=== PATIENT | female | born 1930 | race Caucasian/White ===

== ENCOUNTER 2019-03-18 22:43 | Inpatient (IN) | payer MEDICARE, OTHER ==
[~2019-03-18] VITALS: Ht 160 cm; Wt 59.0 kg
--- NOTE | 2019-03-18 22:50 | NUR ---
ED Nurse Note: pt brought in by [facility] from home c/c cough and pain in the chest area from cough, per EMS report pt went to clinic today and took promethazine for cough report no changes. no sx resp distress noted, vss, airway intact, will cont monitor.
[2019-03-18 23:00] VITALS: BP 150/69
--- NOTE | 2019-03-18 23:07 | Diagnostic Imaging Report ---
EXAM: XR Chest, 1 View CLINICAL HISTORY: SOB TECHNIQUE: Frontal view of the chest. COMPARISON: No relevant prior studies available. IMPRESSION: Cardiomegaly. Left lower lobe consolidation, possibly aspiration or subsegmental atelectasis. No pleural effusion. No pulmonary edema. Pacer wires are in place.
[2019-03-18 23:54] LABS: ANION GAP 10 mmol/L (5-15); BLOOD UREA NITROGEN 27 mg/dL (7-18); CALCIUM 9.2 MG/DL (8.5-10.1); CARBON DIOXIDE 26 MMOL/L (21-32); CHLORIDE 103 MMOL/L (98-107); CREATININE 1.2 MG/DL (0.55-1.30); SODIUM 139 MMOL/L (136-145)
[2019-03-18] MEDS ORDERED: IMBRUVICA420 MG PO (23:55)
[2019-03-18] MEDS ORDERED: LEVOTHYROXINE175 MCG ORAL (23:55)
[2019-03-18] MEDS ORDERED: LIOTHYRONINE SO5 MCG PO (23:55)
[2019-03-18] MEDS ORDERED: FOLIC ACID0.8 MG ORAL (23:55)
[2019-03-19] VITALS (8 sets, daily range): BP systolic 96–145; BP diastolic 44–76
[2019-03-19] MEDS ORDERED: Piperacillin/Tazobactam 3.375 GM in NS 110 ML IVPB ONE ×2
--- NOTE | 2019-03-19 | NUR ---
ED Nurse Note: noted pt's elevated troponin level, ERMD aware, will follow up with order.
[2019-03-19 00:01] LABS: HEMATOCRIT 38.9 % (37.0-47.0); HEMOGLOBIN 12.9 G/DL (12.0-16.0); MEAN CORPUSCULAR VOLUME 102 FL (80-99); PLATELET COUNT 123 K/UL (150-450); RED BLOOD COUNT 3.83 M/UL (4.20-5.40); RED CELL DISTRIBUTION WIDTH 11.8 % (11.6-14.8); WHITE BLOOD COUNT 14.9 K/UL (4.8-10.8)
[2019-03-19] MEDS ORDERED: Aspirin Baby 81mg ONE (00:06)
[2019-03-19 00:09] LABS: ALANINE AMINOTRANSFERASE 18 U/L (12-78); ALBUMIN/GLOBULIN RATIO 0.7 (1.0-2.7); ALKALINE PHOSPHATASE 41 U/L (46-116); ASPARTATE AMINO TRANSFERASE 12 U/L (15-37); BILIRUBIN,TOTAL 0.3 MG/DL (0.2-1.0); CKMB 7.3 NG/ML (0.0-3.6); CREATINE KINASE 57 U/L (26-308)
[2019-03-19] MEDS ORDERED: Aspirin Baby 81mg ORAL ONE (00:15)
--- NOTE | 2019-03-19 00:45 | NUR ---
ED Nurse Note: NOTED PT COUGHING, NONPRODUCTIVE, WEAK COUGH, ERMD NOTIFIED, RT CONTACTED.
--- NOTE | 2019-03-19 00:46 | Emergency Room Report ---
History of Present Illness General Chief Complaint: Upper Respiratory Illness Source: Patient, Family Member Present Illness HPI 88-year-old female with history of non-Hodgkin lymphoma. She also has a history of maker. She presents with chief complaint of a cough. She had a cough for the last 3 days. Went to urgent care and prescribed promethazine. She took it and if she has more coughing. This caused her to be short of breath and has tightness. No fever or chills. Coughing is nonproductive in nature. Worse with inspiration. Worse with exertion. Denies any other complaint. Allergies: Uncoded Allergies: SULFA (Allergy, Unknown, 03/18/19) Patient History Past Medical History: see triage record, old chart reviewed Past Surgical History: pacemaker, other Pertinent Family History: none Social History: Denies: smoking Now: No Immunizations: other Reviewed Nursing Documentation: PMH: Agreed; PSxH: Agreed Nursing Documentation-PMH Past Medical History: No History, Except For Hx Pacemaker: Yes Hx Cancer: Yes - Waldenstrom macroglobulinemia Review of Systems Eye: Denies: eye pain, blurred vision ENT: Denies: ear pain, nose congestion, throat swelling Respiratory: Reports: cough; Denies: shortness of breath Cardiovascular: Reports: chest pain; Denies: palpitations Gastrointestinal: Denies: abdominal pain, diarrhea, nausea, vomiting Musculoskeletal: Denies: back pain, joint pain Skin: Denies: rash Neurological: Denies: headache, numbness Endocrine: Denies: increased thirst, increased urine Hematologic/Lymphatic: Denies: easy bruising All Other Systems: negative except mentioned in HPI Physical Exam Vital Signs Date Time Temp Pulse Resp B/P (MAP) Pulse Ox O2 Delivery O2 Flow Rate FiO2 03/18/19 22:44 98.6 62 16 147/60 (89) 99 Room Air Vitals normal Sp02 EP Interpretation: reviewed, normal General Appearance: well appearing, no apparent distress, alert Head: normocephalic, atraumatic Eyes: bilateral eye PERRL, bilateral eye EOMI ENT: hearing grossly normal, normal pharynx Neck: full range of motion, supple, no meningismus Respiratory: chest non-tender, normal breath sounds, rhonchi Cardiovascular #1: regular rate, rhythm, no murmur Gastrointestinal: normal bowel sounds, non tender, no mass, no organomegaly, no bruit, non-distended Musculoskeletal: back normal, gait/station normal, normal range of motion Psychiatric: mood/affect normal Skin: warm/dry Procedures Critical Care Time Critical Care Time Critical care is mandated in this patient who presented with shortness of breath and has pneumonia and [place]. Patient require my urgent intervention to attenuate the risks of metabolic collapse which may lead to cardiovascular collapse and . Critical care time is 35 minutes excluding any reportable procedure. Critical care time included evaluation, multiple reevaluation, looking at old charts, interpreting laboratory and diagnostic data, discussing case with patient and family and consultants, and charting. Medical Decision Making Diagnostic Impression: Primary Impression: Community acquired pneumonia Qualified Codes: J18.1 - Lobar pneumonia, unspecified organism Additional Impression: NSTEMI (non-ST elevated myocardial infarction) ER Course Patient presents with a cough and chest x-ray showed a left lower lobe infiltrate. Antibiotics given. Based on her age and risk factor, I cover for healthcare associated also. She has no chest pain complaint and EKG showed a paced rhythm. No evidence of any STEMI. Patient given aspirin here. I the case with Dr. Marsh who will admit EKG Diagnostic Results Rate: normal, other - paced Rhythm: NSR ASA given to the pt in ED: Yes Rhythm Strip Diag. Results EP Interpretation: yes Rate: 88 Rhythm: NSR, no PVC's, no ectopy Chest X-Ray Diagnostic Results Chest X-Ray Diagnostic Results : Chest X-Ray Ordered: Yes # of Views/Limited/Complete: 1 View Indication: Shortness of Breath EP Interpretation: Yes Interpretation: no effusion, no pneumothorax, other - LLL infiltrate Impression: Other - LLL infiltrate Electronically Signed by: Luke Campbell MD Last Vital Signs Date Time Temp Pulse Resp B/P (MAP) Pulse Ox O2 Delivery O2 Flow Rate FiO2 03/18/19 23:00 62 14 Room Air 03/18/19 23:00 98.6 150/69 99 Status: improved Disposition: ADMITTED INPATIENT Condition: Serious Luke Campbell MD Mar 19, 2019 00:46
[2019-03-19] MEDS ORDERED: Albuterol ud Inhalation HHN ONE (01:00)
--- NOTE | 2019-03-19 01:00 | NUR ---
ED Nurse Note: pt sleeping at this time, vss, resp even and unlabored, pt continue to have occasional nonproductive cough, nsr on monitor and storage bin tender, all safety measures in place, will cont monitor. pt's at the bedside.
--- NOTE | 2019-03-19 01:39 | NUR ---
THONG GUNDERSON ([facility]) [phone]
--- NOTE | 2019-03-19 02:09 | NUR ---
ED Nurse Note: report given to INEZ Angeles from tele.
--- NOTE | 2019-03-19 02:27 | NUR ---
ED Nurse Note: pt transferred to tele, all belongings sent w/ pt w/ completed belonging list, pt vss, resp even and unlabored on RA, pt on continuous ship engineer, NSR, iv intact and patent. care endorsed to INEZ Angeles from tele.
--- NOTE | 2019-03-19 03:33 | NUR ---
NURSE NOTES: NEW ADMISSION: pt arrived via hospital bed at 0230. Admitting dr. Lambert and DX: CP. Pt is AOX4, pt is on room air with 100% O2 sat, no sign or c/o distress. pt c/o pain in chest 05/14. DR Lambert was notified, awaiting call back. pt was placed on clinical research monitor, pt oriented to room, belongings were reviewed. Called dr Lambert and left message at 0300, awaiting call back from DR Mccormick with admitting orders.
--- NOTE | 2019-03-19 03:39 | NUR ---
NURSE NOTES: recvd call from lab with critical value of troponin 10.671 previous troponin 1.617. Awaiting call back from Dr Marsh
--- NOTE | 2019-03-19 03:41 | NUR ---
NURSE NOTES: 2nd attempt to contact dr Marsh, left message with answering service, on stand by
[2019-03-19] MEDS ORDERED: Enoxaparin 60mg Inj SUBQ ONE (03:45)
[2019-03-19] MEDS ORDERED: Enalaprilat 2.5mg/2ml Inj IV PRN ×2 (05:00→09:00)
[2019-03-19] MEDS ORDERED: dilTIAZem HCl 25mg/5ml Inj IV PRN ×2 (05:00→09:00)
[2019-03-19] MEDS ORDERED: Miralax 17gm pkt ORAL PRN ×2 (05:00→09:00)
[2019-03-19] MEDS ORDERED: Nitroglycerin Subl 0.4mg tab SL PRN ×2 (05:00→08:15)
[2019-03-19] MEDS ORDERED: Albuterol/Ipratropium 3ml neb HHN PRN ×2 (05:00→09:00)
[2019-03-19] MEDS ORDERED: Morphine Sulfate 2mg/ml Inj(IV/IM USE ONLY) IVP PRN ×4 (05:00→09:00)
--- NOTE | 2019-03-19 05:00 | NUR ---
NURSE NOTES: Called Dr Casiano and recmadi orders.
[2019-03-19] MEDS ORDERED: Promethazine/Codeine 5ml UD ORAL PRN ×2 (05:15→09:15)
--- NOTE | 2019-03-19 06:19 | NUR ---
NURSE NOTES: recvd order by Dr Campbell to do 12 lead EKG, pt is having ACUTE [place]/ STEMI. slot floor supervisor aware, transport to [facility] in place and in progress for higher level of care.
--- NOTE | 2019-03-19 06:26 | NUR ---
NURSE NOTES: Per Log Hooker Eugenio, ambulance transport in progress.Accepting Dr Nava at [facility]. Will call to give report once I receive contact number
[2019-03-19] MEDS ORDERED: Liothyronine 5mcg tab ORAL SCH (06:30)
[2019-03-19] MEDS ORDERED: Heparin 25,000u/D5W 500ml 500 ML IV SCH (07:30)
[2019-03-19 07:38] LABS: BASOPHILS % (AUTO) 1.2 % (0.0-2.0); EOSINOPHILS % (AUTO) 0.1 % (0.0-3.0); HEMATOCRIT 37.3 % (37.0-47.0); HEMOGLOBIN 12.1 G/DL (12.0-16.0); LYMPHOCYTES % (AUTO) 30.4 % (20.0-45.0); MEAN CORPUSCULAR VOLUME 100 FL (80-99); MONOCYTES % (AUTO) 11.6 % (1.0-10.0); NEUTROPHILS % (AUTO) 56.9 % (45.0-75.0); PLATELET COUNT 118 K/UL (150-450); RED BLOOD COUNT 3.72 M/UL (4.20-5.40); RED CELL DISTRIBUTION WIDTH 11.8 % (11.6-14.8); WHITE BLOOD COUNT 11.4 K/UL (4.8-10.8)
--- NOTE | 2019-03-19 07:42 | NUR ---
At approximately 0345 INEZ Adams expressed concern of patient having chest pain and Dr Marsh has not responded yet. RN called Dr Marsh 2x, with 15 mins interval, no call ball. I called and left a voicemail to Dr Marsh's Cell number. We then called Dr Casiano and was able to get orders from him after first attempt of calling him. At approximately 0515, Dr Jeanmarie Marsh called and ordered for patient to be transferred to [facility] and asked me to call Dr Unger, who turns out to be on vacation for the week after callign all available phone numbers on hospital directory. I attempted to call Dr Marsh again, no merchandise pickup/receiving associate, so i left a voicemail on cellphone regarding Dr Unger on leave. At approximately 0600, Dr Marsh called and notified me that Dr Luke Campbell is attempting to get a receiving MD from [facility]. ED charge nurse keny, notified me that they are orchestrating transfer, including transport, and communication with [facility] for bed number and phone number to give report to. Egk was sent to Dr Campbell from . I was notified that Dr Nava will be patient's receving MD in [facility]. Notified Angie WILEY. At 0630, Keny endorsed that Vicky, AM Charge nurse will follow-up with these info. At 0730, Vicky verbalized that she will get these information and will give transfer packet to ICU.
--- NOTE | 2019-03-19 07:59 | NUR ---
NURSE NOTES: capacity planning engineer Brown unable to contact , number is wrong
--- NOTE | 2019-03-19 08:01 | NUR ---
NURSE NOTES: Gave report to INEZ Chew in ICU, belongings transfered with pt.
--- NOTE | 2019-03-19 08:10 | NUR ---
NURSE NOTES: Received the patient from INEZ Adams. Transferred from Tele. Patient is awake, alert and oriented, x4. Patient on room air, O2 sat 97%, called RT for oxygen. Denies any chest pain or SOB. No acute distress noted. SR noted on the monitoring and evaluation advisor. VSS, afebrile. All belongings checked. sacral redness noted. Left AC 22G intact, running heparin drip at 12unit/kg/hr. No s/sx of bleeding noted. awaiting for transfer to [facility] for labeler. Pt will be admitted under Dr. Salcedo and transport is arranged at 12pm, per INEZ Adams. Will keep pt NPO. Bed in lowest position.
--- NOTE | 2019-03-19 08:30 | NUR ---
NURSE NOTES: pt was transferred to ICU, gave report to INEZ Dawn, Advised her that per transfer center DR Salcedo is acceptiing pt.
--- NOTE | 2019-03-19 08:50 | NUR ---
NURSE NOTES: patient's , Lisandro Kent, called back. updated on pt's status and plan for transfer to [facility].
[2019-03-19] MEDS ORDERED: Aspirin Baby 81mg ORAL SCH ×2 (09:00)
[2019-03-19] MEDS ORDERED: Heparin 5000 units/ml inj SUBQ SCH ×2 (09:00)
--- NOTE | 2019-03-19 09:00 | NUR ---
NURSE NOTES: Patient asleep, easily arousable. Patient on 2L O2 via NC, O2 sat 100%. BP 96/65. SR noted on the monitor. No acute distress noted.
--- NOTE | 2019-03-19 09:25 | NUR ---
NURSE NOTES: Patient seen by Dr. Marsh. okay not to give asa this morning.
--- NOTE | 2019-03-19 09:41 | NUR ---
NURSE NOTES: 2D Echo completed. Dr. Muñoz at bedside.
--- NOTE | 2019-03-19 11:05 | Consultation ---
Consult Note Consult Note Cardiology for Dr. Lea Full note dictated # [id number] Briefly, Mrs. Kent is an 88 yo woman w/ hx of sick sinus syndrome, s/p pacemaker ( [employer]), Waldenstrom's macroglobulinemia, on imbrovica, followed by Dr. Umana, who presented last pm w/ CP, dyspnea, n/v . EKG w/ PRWP , small q waves laterally and borderline ST elev ( 1/2 mm i, avL). Trop 1.6. Called to see pt this am, when trop noted to inc to 10. Pt w/ decreased cP ( from 10/10 to 3/10 severity) and ekg without significant change from adm. ECHO ( prelim) w EF 20s and ant/apical/lat wma. Pt has been started on asa, plavix, b declan and statin. BP borderline, so will hold JOSEPH inhibitor for now. D/w Dr. Giron , who accepted pt in transfer for further rx of acute NSTEMI w / ongoing CP, possible cath/PCI. D/w Dr. Umana 's covering Gabrielle Berumen MD Mar 19, 2019 11:05
--- NOTE | 2019-03-19 11:20 | Consultation ---
History of Present Illness General Date patient seen: Mar 19, 2019 Time patient seen: 09:05 Chief Complaint: cough Referring physician: Dr Marsh Reason for Consultation: PNA Present Illness HPI 71 years old female with past medical history of sick sinus syndrome, pacemaker , Waldenstrom's macroglobulinemia, presented with complaint of cough for last 3 to 4 days. Cough reported as nonproductive, worse with inspiration and exertion. Patient went to urgent care and was prescribed promethazine. Patient reported no relief from it Patient also reported chest tightness and was short of breath. No fever, no chills. Patient lives at home with her . Upon evaluation patient was afebrile. Pulse oximetry was stable on room air. EKG revealed sinus rhythm, no acute ischemic changes. Chest x-ray demonstrated left lower lobe consolidation , possibly aspiration versus subsegmental atelectasis no pleural effusion no pulmonary edema. Pacer wires were in place. Laboratory work-up revealed leukocytosis WBC 14.9 , hemoglobin 12.9 ,hematocrit 28.9 .platelet count 123. BUN 27, creatinine 1.2 . Troponin initial 1.617. Repeated troponin peaked 10.6, patient started on heparin drip. [facility] transfer center was contacted for transfer . meantime patient was admitted for ICU . Allergies: Coded Allergies: PENICILLINS (Unverified Allergy, Unknown, 03/19/19) per patient Uncoded Allergies: SULFA (Allergy, Unknown, 03/18/19) Medication History Scheduled Folic Acid (Folic Acid), 1 MG ORAL DAILY, (Reported) Ibrutinib (Imbruvica), 450 MG PO DAILY, (Reported) Levothyroxine Sodium (Levothyroxine Sodium), 75 MCG ORAL DAILY, (Reported) Liothyronine Sodium (Liothyronine Sodium), 5 MCG PO DAILY, (Reported) Patient History Healthcare decision maker Resuscitation status Full Code Advanced Directive on File Review of Systems Constitutional: Reports: weakness Eye: Reports: no symptoms ENT: Reports: no symptoms Respiratory: Reports: see HPI Cardiovascular: Reports: see HPI, other - pacemaker Gastrointestinal: Reports: no symptoms Genitourinary: Reports: no symptoms Musculoskeletal: Reports: muscle stiffness Skin: Reports: other - dry skin, redness sacral area Psychiatric: Reports: no symptoms Neurological: Reports: no symptoms Endocrine: Reports: no symptoms Hematologic/Lymphatic: Reports: no symptoms Physical Exam General Appearance: no apparent distress - awake, alert, weak, but responsive elderly female Lines, tubes and drains: peripheral HEENT: normocephalic, atraumatic, anicteric, mucous membranes moist, PERRL Neck: non-tender, supple Respiratory/Chest: chest wall non-tender, lungs clear, no respiratory distress Cardiovascular/Chest: normal rate, regular rhythm Abdomen: normal bowel sounds, non tender, soft Extremities: normal range of motion Skin Exam: warm/dry, other - redness sacral area Neurologic: alert, responsive Musculoskeletal: atrophy - BLE Last 24 Hour Vital Signs Date Time Temp Pulse Resp B/P (MAP) Pulse Ox O2 Delivery O2 Flow Rate FiO2 03/19/19 10:00 67 20 121/44 (69) 100 03/19/19 09:00 67 20 96/65 (75) 99 03/19/19 08:00 97.7 74 20 116/58 (77) 98 03/19/19 08:00 72 03/19/19 07:09 97.5 03/19/19 04:00 76 03/19/19 03:00 97.5 83 21 119/64 (82) 100 03/19/19 02:49 Room Air 03/19/19 02:30 79 03/19/19 02:26 98.9 79 15 120/50 98 Room Air 03/19/19 02:04 98.4 81 18 126/53 98 Room Air 03/19/19 01:06 79 22 100 Room Air 21 03/19/19 00:56 72 30 96 Room Air 21 03/19/19 00:56 21 03/19/19 00:55 72 30 96 Room Air 21 03/19/19 00:00 98.2 67 16 145/76 98 Room Air 03/18/19 23:00 62 14 Room Air 03/18/19 23:00 98.6 60 16 150/69 99 Room Air 03/18/19 22:44 98.6 62 16 147/60 (89) 99 Room Air Laboratory Tests Test 03/18/19 23:15 03/19/19 02:20 03/19/19 05:20 03/19/19 07:05 White Blood Count 14.9 K/UL (4.8-10.8) H 11.4 K/UL (4.8-10.8) H Red Blood Count 3.83 M/UL (4.20-5.40) L 3.72 M/UL (4.20-5.40) L Hemoglobin 12.9 G/DL (12.0-16.0) 12.1 G/DL (12.0-16.0) Hematocrit 38.9 % (37.0-47.0) 37.3 % (37.0-47.0) Mean Corpuscular Volume 102 FL (80-99) H 100 FL (80-99) H Mean Corpuscular Hemoglobin 33.6 PG (27.0-31.0) H 32.6 PG (27.0-31.0) H Mean Corpuscular Hemoglobin Concent 33.1 G/DL (32.0-36.0) 32.4 G/DL (32.0-36.0) Red Cell Distribution Width 11.8 % (11.6-14.8) 11.8 % (11.6-14.8) Platelet Count 123 K/UL (150-450) L 118 K/UL (150-450) L Mean Platelet Volume 7.8 FL (6.5-10.1) 8.2 FL (6.5-10.1) Neutrophils (%) (Auto) % (45.0-75.0) 56.9 % (45.0-75.0) Lymphocytes (%) (Auto) % (20.0-45.0) 30.4 % (20.0-45.0) Monocytes (%) (Auto) % (1.0-10.0) 11.6 % (1.0-10.0) H Eosinophils (%) (Auto) % (0.0-3.0) 0.1 % (0.0-3.0) Basophils (%) (Auto) % (0.0-2.0) 1.2 % (0.0-2.0) Differential Total Cells Counted 100 Neutrophils % (Manual) 31 % (45-75) L Lymphocytes % (Manual) 59 % (20-45) H Monocytes % (Manual) 9 % (1-10) Eosinophils % (Manual) 1 % (0-3) Basophils % (Manual) 0 % (0-2) Band Neutrophils 0 % (0-8) Platelet Estimate Decreased L Platelet Morphology Normal Anisocytosis 1+ Macrocytosis 1+ Sodium Level 139 MMOL/L (136-145) Potassium Level 4.0 MMOL/L (3.5-5.1) Chloride Level 103 MMOL/L (98-107) Carbon Dioxide Level 26 MMOL/L (21-32) Anion Gap 10 mmol/L (5-15) Blood Urea Nitrogen 27 mg/dL (7-18) H Creatinine 1.2 MG/DL (0.55-1.30) Estimat Glomerular Filtration Rate mL/min (>60) Glucose Level 122 MG/DL (74-106) H Lactic Acid Level 1.80 mmol/L (0.4-2.0) Calcium Level 9.2 MG/DL (8.5-10.1) Total Bilirubin 0.3 MG/DL (0.2-1.0) Aspartate Amino Transf (AST/SGOT) 12 U/L (15-37) L Alanine Aminotransferase (ALT/SGPT) 18 U/L (12-78) Alkaline Phosphatase 41 U/L (46-116) L Total Creatine Kinase 57 U/L (26-308) Creatine Kinase MB 7.3 NG/ML (0.0-3.6) H Creatine Kinase MB Relative Index 12.8 Troponin I 1.617 ng/mL (0.000-0.056) 10.671 ng/mL (0.000-0.056) 10.843 ng/mL (0.000-0.056) Pro-B-Type Natriuretic Peptide 153 pg/mL (0-125) H Total Protein 7.6 G/DL (6.4-8.2) Albumin 3.0 G/DL (3.4-5.0) L Globulin 4.6 g/dL Albumin/Globulin Ratio 0.7 (1.0-2.7) L Activated Partial Thromboplast Time 30 SEC (23-33) Height (Feet): 5 Height (Inches): 3.00 Weight (Pounds): 130 Medications Current Medications Medications (Trade) Dose Ordered Sig/Thierno Route PRN Reason Start Time Stop Time Status Last Admin Dose Admin Acetaminophen (Tylenol) 650 mg Q4H PRN ORAL FEVER 03/19/19 09:00 04/18/19 04:59 Aspirin (ASA) 162 mg DAILY ORAL 03/19/19 09:00 04/18/19 08:59 Atorvastatin Calcium (Lipitor) 20 mg BEDTIME ORAL 03/19/19 21:00 04/18/19 20:59 Folic Acid (Folate) 1 mg DAILY ORAL 03/19/19 09:00 04/18/19 08:59 Heparin Sodium/ Dextrose 500 ml @ 14.152 mls/ hr ADJUST PER PROTOCOL IV 03/20/19 09:30 04/18/19 09:29 Levothyroxine Sodium (Synthroid) 75 mcg DAILY@0630 ORAL 03/20/19 06:30 04/18/19 06:29 Levothyroxine Sodium (Synthroid) 100 mcg DAILY@0630 ORAL 03/20/19 06:30 04/18/19 06:29 Liothyronine Sodium (Cytomel) 5 mcg DAILY@0630 ORAL 03/20/19 06:30 04/18/19 06:29 Metoprolol Tartrate (Lopressor) 12.5 mg Q12HR ORAL 03/19/19 21:00 04/18/19 20:59 Morphine Sulfate (Morphine Sulfate) 1 mg Q2H PRN IVP for chest pain 03/19/19 09:00 03/26/19 04:59 Morphine Sulfate (Morphine Sulfate) 2 mg Q4H PRN IVP severe Pain (Pain Scale 7-10) 03/19/19 09:00 03/26/19 04:59 Nitroglycerin (Ntg) 0.4 mg Q5M PRN SL Prn Chest Pain 03/19/19 08:15 04/18/19 04:59 Ondansetron HCl (Zofran) 4 mg Q6H PRN IVP Nausea & Vomiting 03/19/19 09:00 04/18/19 08:59 Polyethylene Glycol (Miralax) 17 gm DAILYPRN PRN ORAL Constipation 03/19/19 09:00 04/18/19 08:59 Assessment/Plan Assessment/Plan: ASSESSMENT acute NSTEMI Cardiomyopathy - new? vs old Moderate AR Probably PNA Mild pulmonary HTN SSS, s/p PPM Waldenstrom's macroglobulinemia Hypothyroidism PLAN OF CARE ICU Heparin gtt seen by cardio awaiting for transfer to [facility] for cardiac cath started on ASA, statin, beta blockage O2 prn to keep sat above 92%, pulm toilet prn empiric abx, leuk trending down fup with CXR ECHO with EF 20%, moderate AR and mild pulmonary HTN home medication resumed awaiting for transfer case discussed and evaluated by supervising physician Cristina Clay NP Mar 19, 2019 11:20
--- NOTE | 2019-03-19 11:44 | NUR ---
NURSE NOTES: RN report given to INEZ Sierra at [facility]. Patient is going to CICU [id number] per RN. All questions answered. Awaiting for transportation. Patient reading a book. No acute distress noted. On 2L O2 NC, O2 sat 100%. BP 109/46, HR 60. Pt's at bedside.
[2019-03-19 11:50] LABS: CHOLESTEROL 163 MG/DL (< 200); HDL CHOLESTEROL 43 MG/DL (40-60); TRIGLYCERIDES 74 MG/DL (30-150)
--- NOTE | 2019-03-19 12:20 | NUR ---
NURSE NOTES: Patient discharged to [facility], accompanied by EMS-ALS and pt's . Patient is awake, alert and oriented. On 2L O2 via NC. VSS. pt has 2/10 chest pain. No SOB. No acute distress noted. Addendum: 03/19/19 at 1249 by THO ALSTON RN Report given to Kaelyn Osborne RN.
[2019-03-19] MEDS ORDERED: Aztreonam Inj 0.5 GM in D5W 55 ML IVPB SCH (14:00)
--- NOTE | 2019-03-19 18:01 | Consultation ---
DATE OF CONSULTATION: 03/19/2019 CARDIOLOGY CONSULTATION A Cardiology consult being done as coverage for Dr. Lea. REASON FOR CONSULT: Acute myocardial infarction. HISTORY OF PRESENT ILLNESS: The patient is an 88-year-old white female, with no previous cardiac history, history of Waldenstrom macroglobulinemia for about 7 years, currently treated with Imbruvica, who has had a chronic nonproductive cough. She presented to urgent care yesterday (records not available). Per the patient and her , she had laboratories and x-ray, which were unremarkable and was given a cough medicine. Later last night, she developed worsening, cough, chest pain, 10/10 described as an ache, radiating to her upper arms associated with dyspnea, nausea, and one episode of vomiting. She also had mild diaphoresis. She was brought to [facility] where initial troponin level was 1. She was admitted and this morning troponin has increased to 10. She continues with chest discomfort but this has improved to 3/10. She denies dyspnea, nausea, or other symptoms. Her EKG on admission showed sinus rhythm at 77 beats per minute, poor R-wave progression anteriorly, inferior Q-waves, and minimal ST-elevation 1/2 to 1 mm in 1 and aVL. Repeat EKG this morning is without significant change, but shows occasional premature ventricular complexes, sinus rhythm, first-degree AV block, 81 beats per minute, poor R-wave progression anteriorly. Repeat EKG this morning shows sinus rhythm, 81 beats per minute, first-degree AV block, no significant change from admission other than now with occasional premature ventricular complexes. She was admitted for further treatment. PAST MEDICAL HISTORY: As noted above, Waldenstrom macroglobulinemia. PAST SURGERIES: Bilateral hip surgery and colon surgery for diverticulitis. MEDICATIONS ON ADMISSION: Thyroid supplement and Imbruvica. ALLERGIES: Penicillin. SOCIAL HISTORY: The patient is a nonsmoker (remote history of tobacco use) and has no history of alcohol abuse. PHYSICAL EXAMINATION: VITAL SIGNS: Blood pressure is 96/65, pulse 60 regular, respirations 22, and afebrile. GENERAL: Alert, elderly white female, in no acute distress. HEENT: Normocephalic and atraumatic. Pupils are equal, round, and reactive to light. Sclerae anicteric. Oral mucosa are moist. NECK: Supple. There is no jugular venous distention. No carotid bruits. LUNGS: Bibasilar crackles. HEART: Regular S1 and S2 with a 1 to 2/6 systolic ejection murmur heard at the lower left sternal border. No S3, S4, or rubs. ABDOMEN: Soft and nontender. No palpable mass. Healed midline surgical scar. EXTREMITIES: No cyanosis, clubbing, or edema. SKIN: Ecchymosis of the upper extremities. NEUROLOGIC: No gross focal motor deficits. LABORATORY DATA: On admission, hemoglobin 12, hematocrit 37, white blood count 11,400, and platelets 118,000. PTT 30. Sodium 139, potassium 4.0, chloride 103, bicarbonate 26, BUN 27, creatinine 1.2, and glucose 122. Troponin on admission 1.6, repeat 10.6 this morning. ProBNP 153. IMAGING STUDIES: Chest x-ray shows cardiomegaly, left lower lobe consolidation, possible atelectasis, permanent pacemaker with leads entering from the left to the right atrium and right ventricle. EKG on admission showed sinus rhythm, at the rate of 77 beats per minute, first-degree AV block, poor R-wave progression anteriorly, and minimal ST elevation as well as Q-waves in 1 and aVL (less than [address]-elevation). Echo (preliminary report) shows an ejection fraction of 20 to 25 percent with akinesia of the apex, mid anterior septum, and inferolateral massey, technically difficult study. ASSESSMENT AND RECOMMENDATIONS: The patient is an 88-year-old woman with Waldenstrom macroglobulinemia and history of permanent dual-chamber pacemaker for sick sinus syndrome, who presents with acute chest pain, dyspnea, nausea and vomiting, and has ruled in for an acute non-ST elevation myocardial infarction. Her chest pain is still present, but improving. Her echo shows significantly reduced ejection fraction and segmental wall motion abnormalities. She has been admitted to the intensive care unit and has been given aspirin, Plavix, heparin, beta-blockers, and statin. She will be transferred to [facility] for possible coronary intervention and revascularization. The case was discussed with Dr. Giron, who accepted the patient for intervention. Case was also discussed with the patient's primary customer service security officer for whom I am covering, Dr. Lea, and with the patient's primary doctor, Dr. Casiano. Gabrielle Muñoz M.D. DR: DONNY JOB#: [id number] CC:
--- NOTE | 2019-03-19 19:15 | History and Physical Report ---
DATE OF ADMISSION: 03/19/2019 TIME SEEN: On 03/19/2019 at 9 a.m. CONSULTANTS: 1. Dominick Lea M.D. 2. Narciso Becerra M.D. 3. Napoleon Casiano M.D. CHIEF COMPLAINT: Chest pain. BRIEF HISTORY: This is an 88-year-old female, who lives at home and presented with chest pain intermittently for the last two days, pressure like, substernal. No loss of consciousness. The patient came to [facility], diagnosed with NSTMI, chest pain, and admitted to ICU. Currently, troponin went up to 10 subsequently and we are in the process of transferring to [facility] for catheterization. Currently, the patient is calm, actually slightly anxious in bed in ICU, getting ultrasound, with slight chest pressure, no complaint. REVIEW OF SYSTEMS: Slight chest pain. Slight shortness of breath. No nausea, vomiting, or diarrhea. PAST MEDICAL HISTORY: Nothing. PAST SURGICAL HISTORY: Pacer and back surgery. MEDICATIONS: Include heparin, levothyroxine, temazepam, Phenergan With Codeine, Tylenol, aspirin, diltiazem, enalapril, folic acid, morphine, Zofran, and nitroglycerin. ALLERGIES: Penicillin. SOCIAL HISTORY: No smoke. No alcohol. No intravenous drug abuse. FAMILY HISTORY: Noncontributory. PHYSICAL EXAMINATION: GENERAL: Slightly anxious in bed, oriented x2, in no acute distress. VITAL SIGNS: Show temperature is 97 degrees, pulse 67, respirations 20, blood pressure 96/65. CARDIOVASCULAR: No murmur. LUNGS: Poor air exchange. ABDOMEN: Bowel sounds distant. EXTREMITIES: No cyanosis, clubbing, or edema. NEUROLOGIC: The patient moves all extremities, slightly weak. LABORATORY AND DIAGNOSTIC DATA: White count 11.4, hemoglobin and hematocrit 12/37, platelets 118,000. BMP shows BUN 27, glucose 122. Initial troponin at 2315 hours was 1.167. Latest one at 0220 hours was 10.6, at 0520 hours was 10.84. Albumin 3.0. INR is , PTT is 30. ASSESSMENT: Chest pain, NSTEMI. PLAN: 1. Pain control. 2. Cardio-treatment pending transfer to [facility] nurses at 11 a.m. for cardiac catheterization. 3. We will continue to follow this patient. 4. CBC and BMP in the morning. Jeanmarie Marsh D.O. DR: CAROLYN JOB#: [id number] CC:
[2019-03-19] MEDS ORDERED: Atorvastatin 20mg tab ORAL SCH (21:00)
[2019-03-19] MEDS ORDERED: Metoprolol Tartrate 12.5mg TAB ORAL SCH (21:00)
[2019-03-20] MEDS ORDERED: Liothyronine 5mcg tab ORAL SCH (06:30)
[2019-03-20] MEDS ORDERED: Heparin 25,000u/D5W 500ml 500 ML IV SCH (09:30)
--- NOTE | 2019-03-20 14:00 | Cardiology Report ---
APPROVED REPORT EKG Measurement Heart [id number] Sinus rhythm with premature atrial complexes Left axis deviation Low voltage QRS Inferior infarct, age undetermined Anterolateral infarct, age undetermined Abnormal ECG
--- NOTE | 2019-03-21 11:28 | Discharge Summary ---
Discharge Summary Discharge Summary _ DATE OF ADMISSION: 03/19/2019 DATE OF DISCHARGE: 03/19/2019 DISCHARGED BY: Dr Marsh REASON FOR ADMISSION: 88 years old female with past medical history of Waldenstrom macroglobulinemia for about 7 years, currently treated with Imbruvica, sick sinus syndrome, status post permanent pacemaker implantation, hypothyroidism, presented with complaint of dry nonproductive cough for 3 to 4 days. Patient went initially to urgent care and was prescribed promethazine. However patient reported no relief from it. Patient also reported chest tightness with associated shortness of breath. No reported fever or chills. Upon evaluation patient was afebrile. Pulse oximetry was stable on room air. EKG revealed sinus rhythm, first-degree AV block. Poor R wave progression anteriorly and minimal ST elevation (less than 1 millimeter) as well as Q waves in I and aVL leads. Chest x-ray demonstrated left lower lobe consolidation, possibly aspiration versus subsegmental atelectasis. No pleural effusion, no pulmonary edema. Pacer wires noted to be in place. Laboratory work-up revealed leukocytosis with WBC 14.9, hemoglobin 12.9, hematocrit 28.9, platelet count 123. BUN 27, creatinine 1.2. Initial troponin 1. 617. Repeated troponin peaked up to 10.6. Patient started on heparin drip. [facility] transfer center was contacted for urgent transfer. Meantime patient continued on heparin drip and was admitted to ICU for further management , while waiting for transfer. CONSULTANTS: diploma pharmacy technician Dr. Benz pulmonary Dr. Casiano [facility]RSE: Patient admitted to ICU with heparin drip. Reed Press Feeder seen the patient and started patient on aspirin , statin, and beta-declan . Echocardiogram revealed akinesia of left ventricular apical segment, mid martin- septum and mid inferolateral wall. Mid to apical left ventricular anterolateral and infero-septum wall was akinetic. No evidence of wall motion left ventricular hypertrophy. Moderate aortic regurgitation. Right ventricular systolic pressure of 36 consistent with a mild pulmonary hypertension Supplemental oxygen provided as needed to keep pulse oximetry above 92%. Pulmonary toilet with bronchodilators provided as needed. Lipid panel revealed elevated LDL of 105 with total cholesterol 163, triglycerides 74 and HDL of 43. TSH within normal limits. Last troponin -10. 843. Patient started on empiric antibiotic. Leukocytosis trending down. Blood culture preliminary negative. No fevers. Home medication resumed. Platelets trending down from initial 123 down to 118. The case was discussed by diploma pharmacy technician with Dr. Giron , who accepted the patient for intervention. Bed became available in the late morning. Patient subsequently was transferred to [facility] via [facility] ambulance for possible coronary intervention and revascularization. FINAL DIAGNOSES: Acute NSTEMI Cardiomyopathy Moderate aortic regurgitation Probably pneumonia Mild pulmonary hypertension Sick sinus syndrome, status post permanent pacemaker implantation Jason Blanche's macroglobulinemia Hypothyroidism DISCHARGE MEDICATIONS: List of medication was sent to accepting facility. DISCHARGE INSTRUCTIONS: Patient was transferred to [facility] via [facility] ambulance for possible coronary intervention and revascularization. Cristina Clay NP Mar 21, 2019 11:28
== END 2019-03-19 12:24 | disposition short-term general hospital (02) | DRG 280 ==
LOC: EDBD 22:43 → EMR 23:01 → 2E 03-19 00:53 → EDBEDREQ 03-19 02:07 → ICU 03-19 08:10
DX: I21.4 Non-ST elevation (NSTEMI) myocardial infarction (principal); J18.9 Pneumonia, unspecified organism; I42.9 Cardiomyopathy, unspecified; I35.1 Nonrheumatic aortic (valve) insufficiency; I27.20 Pulmonary hypertension, unspecified; Z95.0 Presence of cardiac pacemaker; C88.0 Waldenstrom macroglobulinemia; E03.9 Hypothyroidism, unspecified; Z88.0 Allergy status to penicillin; Z88.2 Allergy status to sulfonamides; I44.0 Atrioventricular block, first degree
CPT/HCPCS: 36415; 71045; 80053; 80061; 82550; 82553; 83605; 83880; 84443; 84484; 85007; 85025; 85730; 87040; 93005; 93306; 94640; 94664; 96365; 96368; 99291